=== PATIENT | male | born 1950 | race Caucasian/White ===

== ENCOUNTER → 2016-09-11 | Outpatient (CLI) | payer BC ==
[2016-09-11 11:26] LABS: ALT 43 U/L (21-72); AST 35 U/L (17-59); Alkaline Phosphatase 57 U/L (38-126); Anion Gap 11 mmol/L; Blood Urea Nitrogen 18 mg/dL (9-20); Calcium 9.5 mg/dL (8.4-10.2); Carbon Dioxide 28 mmol/L (22-30); Chloride 103 mmol/L (98-107); Cholesterol 201 mg/dL (<200); Glucose 111 mg/dL (74-99); HDL Cholesterol 33 mg/dL (40-60); Non-African American GFR(MDRD) >60 (>60 ml/min/1.73 sqM); Potassium 4.6 mmol/L (3.5-5.1); Sodium 142 mmol/L (137-145); Total Bilirubin 0.7 mg/dL (0.2-1.3); Total Protein 7.8 g/dL (6.3-8.2); Triglycerides 266 mg/dL (<150)
[2016-09-13 11:19] LABS: Hepatits C Virus RNA, Quant <12 IU/mL (<12); LOG HCV IU/mL <1.08 (<1.08)
== END ==
LOC: LABWHC1 10:26
PROVIDERS: ATTEND Family Medicine
DX: Z00.00 Encounter for general adult medical examination without abnormal findings (principal); B18.2 Chronic viral hepatitis C
CPT/HCPCS: 80061; 87522; 80053; 36415; G0103

== ENCOUNTER 2018-08-21 21:26 | Emergency (ER) | payer MEDICARE, BC ==
[2018-08-21 21:42] VITALS: RESP 18
[2018-08-21] MEDS ORDERED: PROPARACAINE 0.5% OPHTH DROPS 15 ML BTL RIGHT EYE STA (21:44)
[2018-08-21] MEDS ORDERED: ERYTHROMYCIN 5 MG/GM OPHTH OINT 3.5 GM TUBE RIGHT EYE STA (22:28)
--- NOTE | 2018-08-21 22:37 | ED ---
ENT HPI - General Chief complaint: ENT Stated complaint: Something in eye Time Seen by Provider: 08/21/18 21:44 Source: patient Mode of arrival: ambulatory Limitations: no limitations - History of Present Illness Initial comments: 68-year-old male past medical history of hepatitis C presenting today for chief complaint of right eye pain. Patient states he was working with wood earlier today, cutting it with a chainsaw when he felt something get into his eye. He thought nothing of it however 2 hours later around 6 PM he noticed itching of the right eye. Patient had his looked into his eye and she noticed a foreign body appeared to be wood. Patient presented to the emergency department for evaluation. Patient denies any visual changes or loss. Patient denies any diplopia, photophobia, nausea, vomiting, headache. Patient denies any other associated symptoms, he states is more irritation than a severe pain. Patient denies any contact lens use. Patient states he does use glasses for reading remaining review of systems is negative, patient denies any recent fever , chills, shortness of breath, chest pain, back pain, abdominal pain, nausea or vomiting, numbness or tingling, dysuria or hematuria, constipation or diarrhea, headaches or visual changes, or any other complaints. VA 20/20 OD, 20/40 OS. Pt states right eye has always been better than his left. - Related Data Previous Rx's Medication Instructions Recorded Erythromycin Ophth Oint [Romycin 1 applic RIGHT EYE QID 5 Days #1 08/21/18 Ophth Oint] tube Allergies Allergy/AdvReac Type Severity Reaction Status Date / Time cephalexin [From Keflex] Allergy Nausea & Verified 08/21/18 21:43 Vomiting & Diarrhea Tetracyclines Allergy Nausea & Verified 08/21/18 21:42 Vomiting & Diarrhea Review of Systems ROS Statement: Those systems with pertinent positive or pertinent negative responses have been documented in the HPI. ROS Other: All systems not noted in ROS Statement are negative. Past Medical History Past Medical History: Hypertension Additional Past Medical History / Comment(s): HEP C, POSS DIABETES History of Any Multi-Drug Resistant Organisms: None Reported Additional Past Surgical History / Comment(s): HEMATOMA SURGERY LEFT LEG Past Psychological History: No Psychological Hx Reported Smoking Status: Never smoker Past Alcohol Use History: Rare Past Drug Use History: None Reported General Exam - General Exam Comments Initial Comments: General: The patient is awake and alert, in no distress, and does not appear acutely ill. Eye: +3 mm pupils are equal, round and reactive to light, extra-ocular movements are intact. No nystagmus. Right conjunctiva injection. Normal conjunctiva of the left eye. IOP 9 OD, 10 OS. No signs of icterus. Upon slit lamp examination there is very small amount of fine with present at the 7 o' clock position on the sclera. Fluorescein examination revealed uptake at this area, very faint. Negative Joseph sign. Ears, nose, mouth and throat: There are moist mucous membranes and no oral lesions. Neck: The neck is supple, there is no tenderness or JVD. Cardiovascular: There is a regular rate and rhythm. No murmur, rub or gallop is appreciated. Respiratory: Lungs are clear to auscultation, respirations are non-labored, breath sounds are equal. No wheezes, stridor, rales, or rhonchi. Musculoskeletal: Normal ROM, no tenderness. Strength 5/5. Sensation intact. Pulses equal bilaterally 2+. Neurological: A&O x 3. CN II-XII intact, There are no obvious motor or sensory deficits. Coordination appears grossly intact. Speech is normal. Skin: Skin is warm and dry and no rashes or lesions are noted. Psychiatric: Cooperative, appropriate mood & affect, normal judgment. Limitations: no limitations Course Vital Signs 08/21/18 08/21/18 21:36 22:44 Temperature 98.4 F 98 F Pulse Rate 61 88 Respiratory 18 18 Rate Blood Pressure 155/76 144/74 O2 Sat by Pulse 96 97 Oximetry Medical Decision Making - Medical Decision Making Was able to remove 1 of 2 foreign bodies from using 25-gauge needle. This was after the administration of proparacaine. Proparacaine relieved all symptoms. Patient no longer admitted to irritation. Patient denies severe pain, nausea or vomiting. History as well as physical exam findings support foreign body as cause of right eye irritation. Negative Joseph sign. Attending provider, Dr Gauthier did attempt to get smaller second foreign body however this was unsuccessful. At this time we do feel patient is stable for discharge with antibiotic ointment and ophthalmology follow-up tomorrow. Patient is agreeable plan and discharge. Denies questions at this time. Patient discharged appearing well. Return parameters were discussed at length the patient who verbalized understanding. Disposition Clinical Impression: Foreign body of right eye Disposition: HOME SELF-CARE Condition: Good Instructions (If sedation given, give patient instructions): Eye Foreign Body ( ED) Additional Instructions: Please use medication as discussed. Please follow-up with ophthalmology in the next 24 hours. Please return to emergency room if the symptoms increase or worsen or for any other concerns. Prescriptions: Erythromycin Ophth Oint [Romycin Ophth Oint] 1 applic RIGHT EYE QID 5 Days #1 tube Is patient prescribed a controlled substance at d/c from ED?: No Referrals: Matthew Calix DO [Primary Care Provider] - 1-2 days Fior Gamez MD [STAFF PHYSICIAN] - 1-2 days Time of Disposition: 22:37
[2018-08-21 22:45] VITALS: BP 144/74; PULSE 88; TEMP 98
== END 2018-08-21 22:45 | disposition home or self-care (01) ==
LOC: EC 21:26
DX: T15.11XA Foreign body in conjunctival sac, right eye, initial encounter (principal); Z86.19 Personal history of other infectious and parasitic diseases; Z88.1 Allergy status to other antibiotic agents
CPT/HCPCS: 65205; 99283

== ENCOUNTER → 2018-09-09 | Outpatient (CLI) | payer MEDICARE, BC ==
[2018-09-09 14:33] LABS: Blood Urea Nitrogen 19 mg/dL (9-20)
--- NOTE | 2018-09-10 08:18 | CT ---
EXAMINATION TYPE: CT angio abdomen DATE OF EXAM: 09/09/2018 COMPARISON: None. HISTORY: Abdominal aortic aneurysm, without rupture. CT DLP: 703.7 mGycm, Automated Exposure Control for Dose Reduction was Utilized. CONTRAST: CTA scan of the abdomen and pelvis is performed without oral and with IV Contrast, patient injected w ith 100ml mL of Isovue 370. Three-D reconstructed images are created on independent workstation and r eviewed. FINDINGS: VASCULAR: No greater than 3 cm aneurysmal change of the abdominal aorta is identified as there is gra dual normal tapering. Maximum diameter is 2.6 cm transversely just below diaphragmatic hiatus. No kristi ear hypodensity or dissection is seen. No significant plaque is noted. There is patent celiac artery, SMA, bilateral single renal arteries, and SAMIA identified. There is minimal calcified plaque in the b ilateral common iliac arteries. Mild calcified plaque extends into the bilateral internal iliac arter ies. Remainder of the bilateral external iliac arteries into common femoral arteries and branching benson perficial and deep femoral arteries show no significant plaque or stenosis. No iliac artery aneurysm is seen. LUNG BASES: No significant abnormality is appreciated. LIVER/GB: No significant abnormality is appreciated. PANCREAS: No significant abnormality is seen. SPLEEN: No significant abnormality is seen. ADRENALS: No significant abnormality is seen. KIDNEYS: No significant abnormality is seen. BOWEL: Normal-appearing appendix is present. Diverticula are scattered throughout the colon most prom inent in the left and sigmoid colon. PROSTATE/SEMINAL VESICLES: No gross abnormality seen. LYMPH NODES: No greater than 1cm abdominal or pelvic lymph nodes are appreciated. Mild to minimal george ziness throughout the mesentery extending to left of midline is present without suspicious adenopathy . OSSEOUS STRUCTURES: Underlying levoconvex scoliosis is present centered at L2 level. There is moderat e to severe multilevel spurring with moderate multilevel disc space narrowing. Posterior spurring and facet arthropathy contributes to spinal canal effacement at L3-L4 level on axial image 40. OTHER: There is small fat-containing right inguinal hernia. IMPRESSION: No greater than 3 cm abdominal aortic aneurysm.
== END ==
LOC: RADCTMAIN 13:49
PROVIDERS: ATTEND Nurse Practitioner Adult Health
DX: I71.4 Abdominal aortic aneurysm, without rupture (principal)
CPT/HCPCS: 82565; 84520; 74175; 36415; Q9967

== ENCOUNTER 2019-10-30 14:08 | Emergency (ER) | payer MEDICARE, BC ==
[2019-10-30 14:22] VITALS: TEMP 98.3
[2019-10-30] MEDS ORDERED: DIPH,PERTUS(ACELL)TETVAC-LF 0.5 ML VIAL IM ONE (15:18)
[2019-10-30] MEDS ORDERED: PROPARACAINE 0.5% OPHTH DROPS 15 ML BTL RIGHT EYE STA (15:18)
--- NOTE | 2019-10-30 16:03 | ED ---
Eye Problem HPI - General Chief complaint: Eye Problems Stated complaint: rt eye problem Time Seen by Provider: 10/30/19 14:55 Source: patient Mode of arrival: ambulatory Limitations: no limitations - History of Present Illness Initial comments: Patient is 69-year-old male presenting to emergency Department with complaints of right eye irritation. Patient states he was cleaning a woodstove and went to take his shirt off and felt a piece of something go into his right eye. He states he tried to get it out at home but was unsuccessful. Patient denies wearing contacts. He does not remember his last tetanus vaccine. He has no other complaints at this time. Upon arrival to the ER, his vital signs are stable. - Related Data Previous Rx's Medication Instructions Recorded Erythromycin Ophth Oint [Romycin 1 applic RIGHT EYE QID 5 Days #1 10/30/19 Ophth Oint] tube Allergies Allergy/AdvReac Type Severity Reaction Status Date / Time cephalexin [From Keflex] Allergy Nausea & Verified 08/21/18 21:43 Vomiting & Diarrhea Tetracyclines Allergy Nausea & Verified 08/21/18 21:42 Vomiting & Diarrhea Review of Systems ROS Statement: Those systems with pertinent positive or pertinent negative responses have been documented in the HPI. ROS Other: All systems not noted in ROS Statement are negative. Past Medical History Past Medical History: Hypertension Additional Past Medical History / Comment(s): HEP C, POSS DIABETES History of Any Multi-Drug Resistant Organisms: None Reported Additional Past Surgical History / Comment(s): HEMATOMA SURGERY LEFT LEG Past Psychological History: No Psychological Hx Reported Smoking Status: Never smoker Past Alcohol Use History: Rare Past Drug Use History: None Reported General Exam - General Exam Comments Initial Comments: GENERAL: Well-appearing, well-nourished and in no acute distress. HEAD: Atraumatic, normocephalic. EYES: Pupils equal round and reactive to light, extraocular movements intact, sclera anicteric, conjunctiva are normal. Small foreign body noted in the right lower eyelid. There is also a very small corneal abrasion near the same area. ENT: TMs normal, nares patent, oropharynx clear without exudates. Moist mucous membranes. NECK: Normal range of motion, supple without lymphadenopathy or JVD. LUNGS: Breath sounds clear to auscultation bilaterally and equal. No wheezes rales or rhonchi. HEART: Regular rate and rhythm without murmurs, rubs or gallops. ABDOMEN: Soft, nontender, normoactive bowel sounds. No guarding, no rebound. No masses appreciated. : Deferred EXTREMITIES: Normal range of motion, no pitting or edema. No clubbing or cyanosis. NEUROLOGICAL: Cranial nerves II through XII grossly intact. Normal speech, normal gait. SKIN: Warm, Dry, normal turgor, no rashes or lesions noted. Limitations: no limitations Course Vital Signs 10/30/19 10/30/19 14:17 16:09 Temperature 98.3 F Pulse Rate 75 60 Respiratory 18 16 Rate Blood Pressure 162/79 138/81 O2 Sat by Pulse 98 95 Oximetry Procedures - Forgein Body Removal Eye Site: Right Location in eye(s): Lateral aspect, lower lid Anesthetic Used: Proparacaine Eye Exam Technique: Fluorescein Foreign Body Suspected: Wood Forgein Body Removal Technique: Cotton Swab, Irrigation, Needle Remaining Debris: Yes (Possible) Patient Tolerated: well Medical Decision Making - Medical Decision Making Patient is a 69-year-old male presenting with a small foreign body in the right lower eyelid times today. An attempt was made to remove the foreign body after giving proparacaine with only partial removal. Several attempts were made. Patient will be started on erythromycin ointment for corneal abrasion and also given ophthalmology referral for possible remaining foreign object. Patient is in agreement with this plan of care. Return parameters were discussed with the patient and his and they both verbalized understanding. Disposition Clinical Impression: Foreign body of right eye, Corneal abrasion Disposition: HOME SELF-CARE Condition: Stable Instructions (If sedation given, give patient instructions): Eye Foreign Body (ED) Additional Instructions: Please return to the Emergency Department if symptoms worsen or any other concerns. Use antibiotic drops as prescribed. Follow-up with ophthalmology. Prescriptions: Erythromycin Ophth Oint [Romycin Ophth Oint] 1 applic RIGHT EYE QID 5 Days #1 tube Is patient prescribed a controlled substance at d/c from ED?: No Referrals: Matthew Calix DO [Primary Care Provider] - 1-2 days Fior Gamez MD [STAFF PHYSICIAN] - 1-2 days
[2019-10-30 16:10] VITALS: BP 138/81; PULSE 60; RESP 16
== END 2019-10-30 16:10 | disposition home or self-care (01) ==
LOC: EC 14:08
DX: T15.11XA Foreign body in conjunctival sac, right eye, initial encounter (principal); Z88.1 Allergy status to other antibiotic agents; Z23 Encounter for immunization; Y92.009 Unspecified place in unspecified non-institutional (private) residence as the place of occurrence of the external cause
CPT/HCPCS: 65235; 90471; 90715; 99283